=== PATIENT | female | born 1955 | race Caucasian/White ===

== ENCOUNTER 2020-08-09 12:29 | Emergency (ER) | payer MEDICARE, MEDICAID ==
[~2020-08-09] VITALS: Ht 167.6 cm; Wt 90.0 kg
[~2020-08-09 12:29] MED LIST: ASPI-1071 PO; CALC-499 PO; CIME300T PO
[2020-08-09 12:47] VITALS: BP 190/80
== END 2020-08-09 14:02 | disposition home or self-care (01) ==
LOC: ER 12:30
DX: N81.10 Cystocele, unspecified (principal); J44.9 Chronic obstructive pulmonary disease, unspecified; Z88.2 Allergy status to sulfonamides; Z79.899 Other long term (current) drug therapy; Z79.82 Long term (current) use of aspirin
CPT/HCPCS: 99281

== ENCOUNTER 2022-11-03 02:40 | Emergency (ER) | payer MEDICARE, MEDICAID ==
[~2022-11-03] VITALS: Ht 161.3 cm; Wt 68.2 kg
[2022-11-03 02:47] VITALS: BP 120/81
--- NOTE | 2022-11-03 03:39 | NUR ---
MERARY PATIENT SON WOULD LIKE UPDATE OF MOTHER PH #
[2022-11-03] MEDS ORDERED: ketorolac trometh inj. 60 MG/2 ML VIAL IM ONE (05:15)
[2022-11-03] MEDS ORDERED: acetaminophen 325mg tablet PO ONE (05:15)
[2022-11-03] MEDS ORDERED: LIDOcaine 5% patch TP ONE (05:15)
== END 2022-11-03 05:57 | disposition home or self-care (01) ==
LOC: ER 02:41
DX: M54.59 Other low back pain (principal); F17.200 Nicotine dependence, unspecified, uncomplicated; J44.9 Chronic obstructive pulmonary disease, unspecified; Z88.2 Allergy status to sulfonamides; Z79.899 Other long term (current) drug therapy
CPT/HCPCS: 96372; 99283; J1885

== ENCOUNTER 2024-06-13 08:37 | Outpatient (CLI) | payer MEDICARE, MEDICAID | END 2024-06-13 23:59 | disposition home or self-care (01) | LOC: RAD 08:37 | PROVIDERS: ATTEND Podiatrist Foot & Ankle Surgery | DX: M19.072 Primary osteoarthritis, left ankle and foot (principal); M19.071 Primary osteoarthritis, right ankle and foot; G57.50 Tarsal tunnel syndrome, unspecified lower limb; M21.6X1 Other acquired deformities of right foot; M85.872 Other specified disorders of bone density and structure, left ankle and foot; M85.871 Other specified disorders of bone density and structure, right ankle and foot; M21.072 Valgus deformity, not elsewhere classified, left ankle; M21.071 Valgus deformity, not elsewhere classified, right ankle | CPT/HCPCS: 73700 ==